=== PATIENT | female | born 1960 | race Caucasian/White ===

== ENCOUNTER → 2017-10-15 | Outpatient (REF) ==
[~2017-10-15] MED LIST: MULT1TAB64 PO; PROG1.3G TOP; PROG100C PO; TURM500C4 PO; VITAMINS; VITEX PO; [UNRECOGNIZED DRUG - CODE] TP; [UNRECOGNIZED DRUG - OTHER]
[2017-10-15 10:15] LABS: LDL CHOLESTEROL 77 mg/dl
== END ==
DX: Z02.9 Encounter for administrative examinations, unspecified (principal)

== ENCOUNTER → 2018-09-10 | Outpatient (REF) ==
[2018-09-10 09:53] LABS: LDL CHOLESTEROL 69 mg/dl
== END ==
DX: Z02.9 Encounter for administrative examinations, unspecified (principal)